=== PATIENT | male | born 1990 | race Caucasian/White ===

== ENCOUNTER 2023-12-07 09:03 | Emergency (ER) | payer BC, SELFPAY ==
[2023-12-07 09:19] VITALS: BP 135/89; PULSE 78; RESP 16; TEMP 36.7; O2SAT 100
--- NOTE | 2023-12-07 10:02 | ED.SKABFB ---
HPI - Skin/Abscess/Foreign Bdy General Chief complaint: Skin/Abscess/Foreign Body Stated complaint: Face Swelling Time Seen by Provider: 12/07/23 09:51 Source: patient Mode of arrival: ambulatory Limitations: no limitations History of Present Illness HPI narrative: Patient presents today complaining of a 2 day history of facial swelling, mostly around his eyes. Denies any additional symptoms to include shortness of breath, difficulty swallowing, swelling of the mouth or tongue. He has been taking a daily antihistamine, Benadryl, and applying ice around his eyes without much relief. Denies any new exposures at home or work. Related Data Allergies Allergy/AdvReac Type Severity Reaction Status Date / Time No Known Allergies Allergy Verified 12/07/23 09:30 Review of Systems Review of Systems: CONSTITUTIONAL: Denies body aches, fever, chills, or sweats. EYES: Denies visual changes, redness, or discharge. ENT: Denies rhinorrhea, congestion, sore throat, or otalgia. CARDIOVASCULAR: Denies chest pain, palpitations, or edema. RESPIRATORY: Denies cough or dyspnea. GASTROINTESTINAL: Denies abdominal pain, nausea, vomiting, or diarrhea. GENITOURINARY: Denies dysuria or hematuria. SKIN: + swelling around the eyes MUSCULOSKELETAL: Denies back pain, joint pain, or myalgia. NEUROLOGIC: Denies headache, numbness, tingling, or weakness. PSYCH: Denies depression or anxiety. PMFSH Comments At time of signature, I have reviewed and agree with nursing past medical, surgical, social and family history unless otherwise noted. Please see nursing chart for further information. There is no relevant family history pertinent to the presenting complaint Exam Narrative: GENERAL: Well-appearing, well-nourished, and in no acute distress. HEAD: Normocephalic, atraumatic. EYES: EOMI. No redness or drainage. Conjunctivae normal. Mild to moderate redness and edema around both eyes. ENT: Mucous membranes pink and moist. Nares clear. No rhinorrhea. Throat normal. Uvula midline. NECK: Normal AROM. Supple. No lymphadenopathy. CHEST: No respiratory distress. Clear to auscultation. HEART: Regular rate and rhythm. No murmur appreciated. EXTREMITIES: Normal range of motion. No edema. SKIN: Warm, dry. Capillary refill normal. Normal skin turgor. Erythematous urticarial rash to the forehead that extends to the hairline. Same rash to the bilateral lateral and posterior neck. NEURO: No focal deficits. Alert and oriented x3. Gait steady. PSYCH: Normal affect. No signs of depression or anxiety. Course Course Level of Care: Express Care Visit Vital Signs Vital signs: Vital Signs Temperature 98.1 F 12/07/23 09:19 Pulse Rate 78 12/07/23 09:19 Respiratory Rate 16 12/07/23 09:19 Blood Pressure 135/89 12/07/23 09:19 Pulse Oximetry 100 12/07/23 09:19 Oxygen Delivery Room Air 12/07/23 09:19 Temperature 98.1 F 12/07/23 09:19 Pulse Rate 78 12/07/23 09:19 Respiratory Rate 16 12/07/23 09:19 Blood Pressure 135/89 12/07/23 09:19 Pulse Oximetry 100 12/07/23 09:19 Oxygen Delivery Room Air 12/07/23 09:19 Reviewed MDM - Skin/Abscess/Foreign Bdy MDM Narrative Medical decision making narrative: Patient will be given an injection of dexamethasone here, and a prescription for prednisone. Also recommend to continue antihistamines. He will be provided a prescription for an EpiPen as well. Anticipatory guidance given. Differential Diagnosis Differential diagnosis: Likely viral exanthem, dermatophytosis, urticaria, cellulitis, eczema and contact dermatitis Critical Care Time Critical Care Time Critical Care Time: No Discharge Plan Discharge Clinical Impression: Dermatitis Patient Disposition: Home, Self-Care Condition: Stable Instructions: Dermatitis (ED) Additional Instructions: You have received your 1st dose of steroids here at [facility] today. Start the prednisone tomorrow and take as
[2023-12-07] MEDS: dexAMETHasone SOD PHOS INJ 10 MG/ML 1 ML VIAL 12 MG IM (10:10)
== END 2023-12-07 10:34 | disposition home or self-care (01) ==
PROVIDERS: Emergency Provider Nurse Practitioner
DX: L30.9 Dermatitis, unspecified (principal)
CPT/HCPCS: 96372; 99203; G0463; J1100